=== PATIENT | female | born 1985 | race Caucasian/White ===

== ENCOUNTER 2018-11-07 17:14 | Observation (INO) | payer SELFPAY ==
[~2018-11-07] VITALS: Ht 160 cm; Wt 58.6 kg
--- NOTE | 2018-11-07 17:36 | NUR ---
AMBULATED SLOWLY WITH STEADY GAIT TO RM 12, MOTHER WITH
[2018-11-07 19:11] LABS: HEMATOCRIT 39.2 % (37.0-47.0); HEMOGLOBIN 12.8 g/dl (12.0-16.0); IMMATURE GRANULOCYTES 0.2 % (0.0-5.0); MEAN CELL VOLUME 91.6 fL CALC (80.0-100.0); MEAN CORPUSCULAR HGB 29.9 pG CALC (26.0-32.0); MEAN CORPUSCULAR HGB CONC 32.7 g/L CALC (32.0-36.0); NEUT# 3.47 thou/uL (2.00-7.15); RED BLOOD COUNT 4.28 mill/uL (4.20-5.60); RED CELL DISTRI WIDTH 12.3 % (11.5-15.5)
[2018-11-07 19:38] LABS: ALBUMIN 4.3 g/dL (3.2-5.0); ALKALINE PHOSPHATASE 46 u/l (38-126); AMYLASE 37 u/l (30-110); ANION GAP 12 (6-22 (CALC)); BILIRUBIN, TOTAL 0.8 mg/dL (0.0-1.4); BUN 13 mg/dL (7-17); BUN/CREATININE RATIO 19 (12-20 (CALC)); CARBON DIOXIDE 28 mmol/l (22-30); CHLORIDE 105 mmol/l (95-108); CREATININE 0.7 mg/dL (0.5-1.0); GFR > 60 ML/MIN (>=60 (CALC)); GFR FOR AFR.AMER. > 60 ML/MIN (>=60 (CALC)); LIPASE 61 u/l (23-300); SGOT/AST 15 u/l (14-36); SODIUM 140 mmol/l (137-146)
--- NOTE | 2018-11-07 19:39 | NUR ---
Admission Note Report Given to: JENNIFER BANDA Transported by: Wheelchair X Stretcher Transported with: X Nurse Transporter X Patent IV O2 Merchandise Collector
[2018-11-07 19:45] VITALS: BP 116/62
--- NOTE | 2018-11-07 20:30 | NUR ---
PATIENT ADMITTED FROM ER VIA STRETCHER WITH ER STAFF IN ATTENDANCE. PATIENT ABLE TO AMB TO THE STANDING SCALE AND THEN TO THE BR WITH STEADY GAIT. PATIENT THEN ASSISTED TO BED. URINE SPEC OBTAINED. PATIENT IS ALERT AND ORIENTEDX3. STATES THAT SHE WAS BROUGHT TO THE ER TODAY FOR ABD/RUQ PAIN. STATED THAT THE PAIN BECAME SEVERE ON SATURDAY AND SAW GREGORIA MIRAMONTES AT [facility]. HAD SOME TESTING DONE AND THEN WENT TO [facility] LAST NIGHT. MORE TESTING AND WAS DISCHARGED HOME. TODAY PAIN BECAME EVEN WORSE AND WAS BROUGHT TO THE ER BY FAMILY. STATES THAT HER PAIN WAS 5 AT THIS TIME. LAST BM WAS ON . ABD IS SOFT WITH HYPOACTIVE BS. PATIENT ALSO STATES THAT SHE HAS HAD 30LB WEIGHT LOSS SINCE JUN. POOR APPETITE AT THIS TIME. IV SITE TO RIGHT AC INTACT WITH IVF PATENT AND INFUSING AT 125CC/HR. SITE IS HEALTHY AT THIS TIME. PATIENT INSTRUCTED NPO AT THIS TIME. ORIENTED PATIENT TO ROOM AND SURROUNDINGS. INSTRUCTED ON USE OF NURSE CALL LIGHT SYSTEM, TV REMOTE AND PHONE. SAFETY PRECAUTIONS REINFORCED. CALL LIGHT IN REACH. WILL CONT TO MONITOR.
[2018-11-07 20:46] LABS: URINE BILIRUBIN - DIPSTICK NEGATIVE (NEGATIVE); URINE BLOOD DIPSTICK MODERATE (NEGATIVE); URINE COLOR YELLOW; URINE GLUCOSE - DIPSTICK NEGATIVE (NEGATIVE); URINE KETONE NEGATIVE (NEGATIVE); URINE LEUK ESTERASE NEGATIVE (NEGATIVE); URINE NITRITE - DIPSTICK NEGATIVE (Negative); URINE PH 5.5 (4.5-8.0); URINE PROTEIN - DIPSTICK NEGATIVE (NEG-TRACE); URINE SPECIFIC GRAVITY 1.015; URINE UROBILINOGEN - DIPSTICK 0.2 E.U./dL (0.2)
[2018-11-07 21:17] LABS: URINE SQUAMOUS EPITHELIAL CELL FEW EPI/hpf (0-FEW)
--- NOTE | 2018-11-07 22:24 | NUR ---
PATIENT RESTING IN BED AT THIS TIME-C/O SEVERE RUQ PAIN-MEDICATED WITH DILAUDID 1MG IVP FOR 9/10 ON PAIN SCALE. PATIENT REMAINS NPO AT THIS TIME. IVF PATENT AND INFUSING AT 125CC/HR VIA RIGHT AC SITE. SITE REMAINS HEALTHY AT THIS TIME. SAFETY PRECAUTIONS REINFORCED. CALL LIGHT IN REACH. WILL CONT TO MONITOR.
[2018-11-08] VITALS (11 sets, daily range): BP systolic 92–112; BP diastolic 47–67
--- NOTE | 2018-11-08 00:15 | NUR ---
PATIENT RESTING IN BED AT THIS TIME WITH S/O AT BEDSIDE. PATIENT REMAINS NPO ORDERED. IVF PATENT AND INFUSING AT 125CC/HR VIA RIGHT AC SITE. SITE REMAINS HEALTHY AT THIS TIME. IV TORADOL 15MG IVP GIVEN ORDERED AND ZOSYN 3.375MG IVPB HUNG ORDERED. OFFERED RECLINER BUT S/O DECLINES AT THIS TIME. CALL LIGHT IN REACH, WILL CONT TO MONITOR.
--- NOTE | 2018-11-08 04:00 | NUR ---
PATIENT RESTING IN BED-APPEARS SLEEPING WITH S/O AT BEDSIDE. REMAINS NPO. IVF PATENT AND INFUSING AT 125CC/HR. CALL LIGHT IN REACH. WILL CONT TO MONITOR.
--- NOTE | 2018-11-08 07:10 | NUR ---
REPORT RECEIVED FROM JENNIFER BANDA; PT LAYING IN BED C.O OF PAIN 03/21; WILL MEDICATE.
--- NOTE | 2018-11-08 07:30 | NUR ---
ASSESSMENT COMPLETED; C/O ABD PAIN 03/21, MEDICATED WITH DILAUDID; A/O X3; IVF NS INFUSING AT 125CC HR, SITE APPEARS HEALTHY; PT AWARE OF NPO STATUS; CALL PACHECO IN REACH; SAFETY PRECAUTION REINFORCE; WILL CONTINUE TO MONITOR.
--- NOTE | 2018-11-08 09:44 | NUR ---
DR TEJEDA CALLED STATED "WILL REMOVE PT'S GALLBLADDER TODAY @ 1:30, INFORM HS" Claritza ADAMSON AWARE.
--- NOTE | 2018-11-08 11:25 | NUR ---
PT TOOK A SHOWER WITH ASSIST OF HER BOY FRIEND. NOT SITTING UP IN BED WATCHING TV; IVF ZOSYN, INFUSHING WITHOUT DIFFICULTY; MEDICATED WITH TORDOL FOR PAIN 03/21; NO S/S OF DISTRESS NOTED; CALL PACHECO IN REACH.
--- NOTE | 2018-11-08 12:27 | NUR ---
PT OFF FLOOR VIA STRETCHER ACCOMPANIED BY BETH FROM OR IN STABLE CONDITION; FAMILY AT BEDSIDE.
[2018-11-08] MEDS ORDERED: PERCOCET 5/325M1 TAB PO (14:44)
--- NOTE | 2018-11-08 15:24 | NUR ---
PT ARRIVED VIA STRETCHER, ACCOMPANIED BY TWO OR STAFF IN STABLE CONDITION; PT TRF FROM STRETCHER TO BED WITH MINIMAL ASSISTANCE; PT SEEMS DROWSY; BUT ALERT; THREE SM INCISIONS NOTED TO ABD, SECTURES AND DAMABOND INTACT; SCD TO BILAT LEGS; IVF NS INSUSING @125CC HR; IV SITE APPEARS HEALTHY; PT ADVISE TO CALL FOR ASSISTANCE; FAMILY MEMBERS AT BEDSIDE; WILL CONTINUE TO MONITOR.
--- NOTE | 2018-11-08 16:15 | NUR ---
PT LAYING IN BED IN & OUT OF SLEEP; RESP EVEN AND UNLABORED; FAMILY MEMBER AT BEDSIDE; CALL PACHECO IN REACH. VOICE NO CONCERNS; WILL CONTINUE TO MONITOR.
--- NOTE | 2018-11-08 16:24 | NUR ---
MEDICATED WITH PERCOCET @1627 FOR PAIN 04/21; AT 1700 WILD FROM OR VISIT PT, PT REPORT NO RELIEF FROM PERCOCET, NEW ORDER RECEIVED FOR TORADOL TO BE GIVEN (NOW).
--- NOTE | 2018-11-08 17:49 | NUR ---
PT SITTING UP IN BED EATING SUPPER; ZOSYN INFUSING, IVS APPEARS HEALTHY; STATED SOME RELIEF FORM PAIN MEDS, PAIN 6/10; FAMILY AT BEDSIDE; SAFETY PRECAUTION REINFORCE. CALL PACHECO IN REACH.
--- NOTE | 2018-11-08 19:31 | NUR ---
PATIENT UP TO THE BR TO VOID. FORGOT TO USE SPEC HAT BUT STATES THAT SHE IS VOIDING WITHOUT ANY DIFFICULTY. ASSISTED BACK TO BED. PATIENT WITH IV SITE TO RIGHT AC WITH IVF NS PATENT AND INFUSING AT 125CC/HR. SITE APPEARS HEALTHY. PATIENT WITH C/O NAUSEA AND MEDICATED WITH ZOFRAN 4MG IVP. POST-OP PAIN 9/10 MEDICATED WITH DILAUDID 1MG IVP FOR PAIN. PROVIDED WITH COOL CLOTH TO FOREHEAD AND ICE CHIPS. SAFETY PRECAUTIONS REINFORCED. CALL LIGHT IN REACH. WILL CONT TO MONITOR.
--- NOTE | 2018-11-08 21:00 | NUR ---
PATIENT RESTING IN BED WITH COOL CLOTH TO FOREHEAD. STATES THAT SHE IS STILL FEELING NAUSEATED-NO VOMITTING. PATIENT HYPERVENTILATING-ENCOURAGED TO DO DEEP BREATHING EXERCISES. VS STABLE AND O2 SAT IS 100% on room air. PROVIDED PATIENT WITH COLD PACK AND STATES THAT IS WORKING BETTER. IVF PATENT AND INFUSING ORDERED. S/O REMAINS AT BEDSIDE AND COT PROVIDED. SAFETY PRECAUTIONS REINFORCED. CALL LIGHT IN REACH. WILL CONT TO MONITOR.
--- NOTE | 2018-11-09 | NUR ---
PATIENT RESTING IN BED-MEDICATED FOR PAIN WITH DILAUDID 1MG FOR PAIN AND WITH TORADOL SCHEDULED FOR PAIN. ZOSYN HUNG ORDERED VIA RIGHT AC IV SITE. STATES THAT HER NAUSEA HAS IMPROVED AT THIS TIME AND RESP ARE IMPROVED. SAFETY PRECAUTIONS REINFORCED.CALL LIGHT IN REACH. WILL CONT TO MONITOR.
[2018-11-09 00:04] VITALS: BP 104/69
--- NOTE | 2018-11-09 04:28 | NUR ---
APPEARS SLEEPING WITH S/O AT BEDSIDE. PATIENT WITH IVF PATETN AND INFUSING VIA RIGHT AC SITE AT 125CC/HR. CALL LIGHT IN REACH. WILL CONT TO MONITOR.
[2018-11-09 04:33] VITALS: BP 102/60
--- NOTE | 2018-11-09 06:58 | NUR ---
REPORT RECEIVED FROM JENNIFER BANDA; PT AWAKE IN BED; BOYFRIEND ASLEEP ON COT; PT VOICE NO CONCERNS;
[2018-11-09 09:00] VITALS: BP 104/72
--- NOTE | 2018-11-09 09:24 | NUR ---
ASSESSMENT COMPLETED; AMBULATE TO RESTROOM WITH SLOW STEADY GAIT, REFUSE HELP; A/O; C/O OF PAIN 02/18 MEDICATE WITH PERCOCET; DERMABOND INTACT TO 3 ABD ABD INCISIONS; ENCOURAGE TO WALK THE HALLS, STATED "IM OK FOR NOW" IV PATENT, NS INFUSING @ 125CC/HR; REQ LETTER FROM TO BE OFF WORK FOR A WEEK; FAMILY AT BEDSIDE
--- NOTE | 2018-11-09 10:15 | NUR ---
Discharge instructions given. Patient verbalizes understanding of same. Discharged in stable condition via Ambulatory to Home with significant other. All belongings sent with pt.
== END 2018-11-09 10:15 | disposition home or self-care (01) | DRG 419 ==
LOC: ED 17:14 → ED-I 18:35 → ED 18:52 → MS2 18:53
PROVIDERS: Emergency Medicine; ADMIT Surgery; ATTEND Surgery
PROC: 0FT44ZZ Resection of Gallbladder, Percutaneous Endoscopic Approach (ICD-10-PCS; principal; 2018-11-08)
DX: K81.0 Acute cholecystitis (principal)
CPT/HCPCS: G0378; J0131; J2710; Q9967; S0164

== ENCOUNTER 2019-11-21 | Emergency (ER) | payer MEDICAID ==
[~2019-11-21] MED LIST: PERCOCET 5/325M1 TAB PO
[2019-11-21] MEDS ORDERED: PRENATAL1 TA1 PO (22:50)
[2019-11-21 23:38] LABS: HEMATOCRIT 34.7 % (37.0-47.0); HEMOGLOBIN 11.9 g/dl (12.0-16.0); IMMATURE GRANULOCYTES 0.3 % (0.0-5.0); MEAN CELL VOLUME 88.7 fL CALC (80.0-100.0); MEAN CORPUSCULAR HGB 30.4 pG CALC (26.0-32.0); MEAN CORPUSCULAR HGB CONC 34.3 g/dL CAL (32.0-36.0); NEUT# 8.23 thou/uL (2.00-7.15); RED BLOOD COUNT 3.91 mill/uL (4.20-5.60); RED CELL DISTRI WIDTH 12.5 % (11.5-15.5)
[2019-11-21 23:39] LABS: URINE BILIRUBIN - DIPSTICK NEGATIVE (NEGATIVE); URINE BLOOD DIPSTICK NEGATIVE (NEGATIVE); URINE COLOR YELLOW; URINE GLUCOSE - DIPSTICK NEGATIVE (NEGATIVE); URINE KETONE NEGATIVE (NEGATIVE); URINE LEUK ESTERASE NEGATIVE (NEGATIVE); URINE NITRITE - DIPSTICK NEGATIVE (Negative); URINE PROTEIN - DIPSTICK NEGATIVE (NEG-TRACE); URINE SPECIFIC GRAVITY <=1.005; URINE UROBILINOGEN - DIPSTICK 0.2 E.U./dL (0.2)
[2019-11-21 23:51] LABS: ALBUMIN 4.4 g/dL (3.2-5.0); ALKALINE PHOSPHATASE 56 u/l (38-126); ANION GAP 14 (6-22 (CALC)); BILIRUBIN, TOTAL 0.5 mg/dL (0.0-1.4); BUN 13 mg/dL (7-17); BUN/CREATININE RATIO 22 (12-20 (CALC)); CARBON DIOXIDE 25 mmol/l (22-30); CHLORIDE 103 mmol/l (95-108); CREATININE 0.6 mg/dL (0.5-1.0); GFR > 60 ML/MIN (>=60 (CALC)); GFR FOR AFR.AMER. > 60 ML/MIN (>=60 (CALC)); POTASSIUM 3.6 mmol/l (3.5-5.1); SGOT/AST 19 u/l (14-36); SODIUM 138 mmol/l (137-146); TOTAL PROTEIN 7.3 g/dL (6.3-8.2)
== END 2019-11-22 00:15 | disposition home or self-care (01) ==
PROVIDERS: Family Medicine
DX: S39.011A Strain of muscle, fascia and tendon of abdomen, initial encounter (principal); X50.0XXA Overexertion from strenuous movement or load, initial encounter; Y93.19 Activity, other involving water and watercraft; Z33.1 Pregnant state, incidental

== ENCOUNTER 2020-08-09 15:00 | Emergency (ER) | payer MEDICAID ==
[~2020-08-09] VITALS: Ht 160 cm; Wt 70.0 kg
[~2020-08-09 15:00] MED LIST changes: +PRENATAL1 TA1 PO
[2020-08-09] MEDS ORDERED: TRAMADOL HYDROC50 M1 PO (16:01)
[2020-08-09] MEDS ORDERED: BACTROBAN TOP (16:01)
[2020-08-09] MEDS ORDERED: KEFLEX500 M1 PO (16:01)
[2020-08-09 16:08] VITALS: BP 124/79
== END 2020-08-09 16:08 | disposition home or self-care (01) ==
LOC: ED 15:00
DX: L03.011 Cellulitis of right finger (principal)

== ENCOUNTER 2021-05-22 08:06 | Emergency (ER) | payer MEDICAID ==
[~2021-05-22] VITALS: Ht 160 cm; Wt 60.9 kg
[~2021-05-22 08:06] MED LIST changes: +BACTROBAN TOP; +KEFLEX500 M1 PO; +TRAMADOL HYDROC50 M1 PO
[2021-05-22] MEDS ORDERED: SERTRALINE25 MG PO (08:32)
[2021-05-22] MEDS ORDERED: IBUPROFEN600 MG PO (09:06)
[2021-05-22 09:07] VITALS: BP 107/57
== END 2021-05-22 09:22 | disposition home or self-care (01) ==
LOC: ED 08:06
DX: S93.402A Sprain of unspecified ligament of left ankle, initial encounter (principal); S93.602A Unspecified sprain of left foot, initial encounter; S30.0XXA Contusion of lower back and pelvis, initial encounter; W01.0XXA Fall on same level from slipping, tripping and stumbling without subsequent striking against object, initial encounter

== ENCOUNTER 2021-08-02 11:48 | Emergency (ER) | payer OTHER, MEDICAID ==
[~2021-08-02] VITALS: Ht 160 cm; Wt 59.0 kg
[~2021-08-02 11:48] MED LIST changes: +IBUPROFEN600 MG PO; +SERTRALINE25 MG PO
[2021-08-02 14:33] VITALS: BP 116/72
[2021-08-02] MEDS ORDERED: TORADOL PO (14:48)
[2021-08-02] MEDS ORDERED: FLEXERIL5 M1 PO (14:48)
== END 2021-08-02 14:58 | disposition home or self-care (01) | DRG 90 ==
LOC: ED 11:48
DX: S06.0X0A Concussion without loss of consciousness, initial encounter (principal); S00.81XA Abrasion of other part of head, initial encounter; F41.9 Anxiety disorder, unspecified; V59.40XA Driver of pick-up truck or van injured in collision with unspecified motor vehicles in traffic accident, initial encounter; R93.0 Abnormal findings on diagnostic imaging of skull and head, not elsewhere classified

== ENCOUNTER 2021-08-05 22:00 | Observation (INO) | payer MEDICAID ==
[~2021-08-05] VITALS: Ht 160 cm; Wt 68.0 kg
[~2021-08-05 22:00] MED LIST changes: +FLEXERIL5 M1 PO; +TORADOL PO
--- NOTE | 2021-08-05 22:00 | NUR ---
PT TO ROOM 10 ACCOMPANIED BY .
[2021-08-05 22:39] LABS: HEMATOCRIT 40.2 % (37.0-47.0); HEMOGLOBIN 13.2 g/dl (12.0-16.0); IMMATURE GRANULOCYTES 0.1 % (0.0-5.0); MEAN CELL VOLUME 92.2 fL CALC (80.0-100.0); MEAN CORPUSCULAR HGB 30.3 pG CALC (26.0-32.0); MEAN CORPUSCULAR HGB CONC 32.8 g/dL CAL (32.0-36.0); NEUT# 3.81 thou/uL (2.00-7.15); RED BLOOD COUNT 4.36 mill/uL (4.20-5.60); RED CELL DISTRI WIDTH 12.4 % (11.5-15.5)
[2021-08-05 22:40] LABS: GFR > 60 ML/MIN (>=60 (CALC)); GFR FOR AFR.AMER. > 60 ML/MIN (>=60 (CALC))
[2021-08-05 22:51] LABS: ALBUMIN 4.5 g/dL (3.2-5.0); ALKALINE PHOSPHATASE 50 u/l (38-126); ANION GAP 12 (6-22 (CALC)); BUN 24 mg/dL (7-17); BUN/CREATININE RATIO 28 (12-20 (CALC)); CARBON DIOXIDE 27 mmol/l (22-30); CHLORIDE 105 mmol/l (95-108); CREATININE 0.9 mg/dL (0.5-1.0); GFR > 60 ML/MIN (>=60 (CALC)); GFR FOR AFR.AMER. > 60 ML/MIN (>=60 (CALC)); POTASSIUM 4.1 mmol/l (3.5-5.1); SGOT/AST 23 u/l (14-36); SODIUM 140 mmol/l (137-146)
[2021-08-05 22:52] LABS: BILIRUBIN, TOTAL 0.8 mg/dL (0.0-1.4)
[2021-08-05 22:53] LABS: INTERNATIONAL NORMALIZED RATIO 0.9 RATIO (0.7-1.3); PROTHROMBIN TIME 9.5 SECONDS (9.0-12.5)
[2021-08-05 23:04] LABS: MYOGLOBIN 28 ng/mL (0 - 62)
--- NOTE | 2021-08-05 23:05 | NUR ---
PT RESTING. AWAITING TEST RESULTS.
--- NOTE | 2021-08-06 00:25 | NUR ---
PT SLEEPING. NAD.
--- NOTE | 2021-08-06 01:45 | NUR ---
REPORT RECEIVED FROM ER
[2021-08-06 02:00] VITALS: BP 110/55
--- NOTE | 2021-08-06 02:00 | NUR ---
PATIENT ARRIVED TO FLOOR ACCOMPANIED BY Chel DAVALOS RN. PT ALERT AND ORIENTED X3. CLEAR LUNG SOUNDS, NORMAL HEART SOUNDS. PATIENT IS ON TELEMETRY (8630). RUNNING SR. PT HAS A #20 LAC SALINE LOCKED. NO CURRENT WEAKNESS ON LEFT SIDE OF BODY, NO COMPLAINT OF PAIN. PT PROVIDED WITH WARM BLANKETS, WATER AND FOOD PER REQUEST. ORIENTED TO CALL LIGHT SYSTEM AND ADVISED TO CALL. PLAN OF CARE REVIEWED. CALL LIGHT AND BEDSIDE TABLE WITHIN REACH.
--- NOTE | 2021-08-06 02:10 | NUR ---
PT TRANSFERRED TO M/S AFTER CALLING REPORT.
[2021-08-06 03:05] LABS: C-REACTIVE PROTEIN < 0.5 mg/dL (0-0.9); CALCULATED LDLCHOLESTEROL 103 mg/dL (62-129 (CALC)); CHOLESTEROL HDL RATIO 2.8 (<4.4 (CALC)); HDL CHOLESTEROL 64 mg/dL (>=40); MAGNESIUM 2.1 mg/dL (1.6-2.3); TOTAL CHOLESTEROL 178 mg/dl (0-199); TOTAL TRIGLYCERIDES 53 mg/dl (30-149); VLDL CHOLESTROL 11 mg/dl (1-41 (CALC))
[2021-08-06 04:00] VITALS: BP 101/55
--- NOTE | 2021-08-06 04:20 | NUR ---
PATIENT SLEEPING SOUNDLY, AWOKEN BY WRITTER, DENIES ANY CURRENT NEEDS. CALL LIGHT AND BEDSDEI TABLE WITHIN REACH.
[2021-08-06 04:47] LABS: IMMATURE GRANULOCYTES 0.2 % (0.0-5.0); MEAN CELL VOLUME 92.9 fL CALC (80.0-100.0); MEAN CORPUSCULAR HGB 30.1 pG CALC (26.0-32.0); MEAN CORPUSCULAR HGB CONC 32.4 g/dL CAL (32.0-36.0); NEUT# 3.29 thou/uL (2.00-7.15); RED BLOOD COUNT 3.66 mill/uL (4.20-5.60); RED CELL DISTRI WIDTH 12.7 % (11.5-15.5)
[2021-08-06 05:11] LABS: ANION GAP 9 (6-22 (CALC)); BUN 17 mg/dL (7-17); BUN/CREATININE RATIO 26 (12-20 (CALC)); CARBON DIOXIDE 22 mmol/l (22-30); CHLORIDE 111 mmol/l (95-108); CREATININE 0.7 mg/dL (0.5-1.0); GFR > 60 ML/MIN (>=60 (CALC)); GFR FOR AFR.AMER. > 60 ML/MIN (>=60 (CALC)); POTASSIUM 4.1 mmol/l (3.5-5.1); SODIUM 138 mmol/l (137-146)
[2021-08-06 06:15] LABS: PROTHROMBIN TIME 10.4 SECONDS (9.0-12.5)
[2021-08-06 07:03] LABS: URINE BILIRUBIN - DIPSTICK NEGATIVE (NEGATIVE); URINE BLOOD DIPSTICK TRACE-INTACT (NEGATIVE); URINE COLOR YELLOW; URINE GLUCOSE - DIPSTICK NEGATIVE (NEGATIVE); URINE KETONE NEGATIVE (NEGATIVE); URINE LEUK ESTERASE NEGATIVE (NEGATIVE); URINE PROTEIN - DIPSTICK NEGATIVE (NEG-TRACE); URINE UROBILINOGEN - DIPSTICK 0.2 E.U./dL (0.2)
[2021-08-06 07:05] LABS: URINE NITRITE - DIPSTICK NEGATIVE (Negative)
--- NOTE | 2021-08-06 08:00 | NUR ---
PT AWAKE UPON ENTERING ROOM. PT SHOWED LEFT ARM SWELLING THIS MORNING. DR. COLEMAN NOTIFIED. ASSESSMENT ALLOWED AT THIS TIME. LUNG SOUNDS CLEAR UPON AUSCULATION IN UPPER LOWER LOBES. HEART SOUNDS ARE REGULAR. BOWEL SOUNDS HEARD X4. TELE MONITOR IS IN PLACE, CONTINOUS MONITORING BY ED. IV IS ON THE LAC 20G FLUSHED WITH NO RESISTANCE AND ABLE TO GET BLOOD RETURN. FALL PRECAUTIONS ARE IN PLACE. CALL LIGHT AND PERSONAL ITEMS ARE WITHIN REACH.
--- NOTE | 2021-08-06 09:57 | NUR ---
DR. COLEMAN AT BEDSIDE DISCUSSING POC
[2021-08-06 10:30] VITALS: BP 121/72
--- NOTE | 2021-08-06 12:00 | NUR ---
PT IN ROOM ON PHONE UPON ENTERING ROOM. STATES NO PAIN AT THIS TIME. TELE MONITOR IN PLACE. BEING MONITORED BY ED. FALL PRECAUTIONS ARE IN PLACE. IV 20G LAC PATENT. STATES NO OTHER NEEDS AT THIS TIME. CALL LIGHT WITHIN REACH,
--- NOTE | 2021-08-06 14:04 | NUR ---
NH SCALE PERFORMED AT THIS TIME WITH JENNIFER SAL. AT 1345 PT COMPLIANED OF HEADACHE. NOTFIED DR. COLEMAN. @1400 PT STATES FEELING TINGLING DOWN HER LEFT ARM. CAUSTIC LOADER JENNIFER BERMAN NOTIFIED. VITALS WERE PERFORMED BP: 121/74, HR: 101, SPO2: 100.
--- NOTE | 2021-08-06 14:13 | NUR ---
DR. COLEMAN NOTIFIED AT THIS TIME OF PT STATUS. SHE CONTINUE TO HAVE TINGLING ON HER LEFT SIDE. CAN NOT MOVE HER LEFT ARM OR LEG. SHE REMAINS ALERT TO PERSON AND PLACE.
--- NOTE | 2021-08-06 14:16 | NUR ---
RAPID RESPONSE WAS CALLED AT THIS TIME. NIH SCALE RESULTS WERE 9. PT IS VERY WEAK TO FIRM ADMINISTRATOR, CAN NOT MOVE LEFT LEG. OR MOVE LEFT ARM AT ALL. CAN SHOW HER TEETH AND STICK OUT PARTIALLY THE TONNGUE.
--- NOTE | 2021-08-06 14:26 | NUR ---
PT TAKEN DOWN TO CT OF THE BRAIN VIA BED WITH JENNIFER BERMAN, JENNIFER DAHL (AUCTION BLOCK CLERK) AND JENNIFER GLEASON. WITH CONTINUED LEFT SIDED WEAKNESS.
--- NOTE | 2021-08-06 14:33 | NUR ---
PT BACK IN ROOM FROM CT, AWAITING RESULTS.RN ANTONI, JENNIFER GLEASON AND JENNIFER DAHL (OPTICAL ENGINEER) AT BEDSIDE. PT BECOMING MORE LETHARGIC. CAN NOT LIFT UP BOTH LEGS. CAN SLIGHTLY PATTERN CHAIN MAKER SUPERVISOR RIGHT ARM BUT NOT LEFT ARM. PT UNABLE TO SMILE AND STICK OUT HER TONGUE. PT CAN STILL SAY NAME//LOCATION. SPEECH REMAINS SLURRED.
--- NOTE | 2021-08-06 14:37 | NUR ---
PT BLOOD SUGAR CHECKED: 90
--- NOTE | 2021-08-06 14:40 | NUR ---
DR. LORETA NAJERALOGIST CONSULTED VIA COMPUTER WEBCAM AT THIS TIME DISCUSSING POC WITH PT. JENNIFER BERMAN, JENNIFER GLEASON AND JENNIFER DAHL (YIELD CLERK) PRESENT AT BEDSIDE.
--- NOTE | 2021-08-06 14:45 | NUR ---
DR. KAN PLAN IS TO TRANSER PT TO [facility] VIA HELLIC[facility]TER WITH [facility]. DR. KAN STATES POSSIBLE LARGE VESSEL OCCLUSION. PT STILL VERY WEAK WITH CONTINUING TINGLING DOWN HER LEFT SIDE. CAN STILL SAY HER NAME,, AND LOCATION. UNABLE TO MOVE LEFT SIDE OF BODY. JENNIFER DAHL (DICTAPHONE TECHNICIAN), JENNIFER GLEASON, DR KAN (VIA WEBCAM) AT BEDSIDE WITH PT
[2021-08-06 15:29] LABS: HEMOGLOBIN 13.9 g/dl (12.0-16.0); IMMATURE GRANULOCYTES 0.2 % (0.0-5.0); MEAN CELL VOLUME 91.2 fL CALC (80.0-100.0); MEAN CORPUSCULAR HGB 30.5 pG CALC (26.0-32.0); MEAN CORPUSCULAR HGB CONC 33.4 g/dL CAL (32.0-36.0); NEUT# 3.35 thou/uL (2.00-7.15); RED BLOOD COUNT 4.56 mill/uL (4.20-5.60); RED CELL DISTRI WIDTH 12.5 % (11.5-15.5)
[2021-08-06 15:30] LABS: HEMATOCRIT 41.6 % (37.0-47.0)
--- NOTE | 2021-08-06 15:31 | NUR ---
PERFORMED NIH SCALE AGAIN WITH A SCORE OF BEING 14. PT VERY WEAK, CRYING, UNABLE TO MOVE LEFT SIDE OF BODY. JENNIFER DAHL(VARNISH FINISHER) AND DR. KAN (VIA WEBCAM) AT BEDSIDE.
[2021-08-06 15:40] LABS: ALBUMIN 4.2 g/dL (3.2-5.0); ALKALINE PHOSPHATASE 47 u/l (38-126); ANION GAP 10 (6-22 (CALC)); BUN 10 mg/dL (7-17); BUN/CREATININE RATIO 15 (12-20 (CALC)); CARBON DIOXIDE 26 mmol/l (22-30); CHLORIDE 108 mmol/l (95-108); CREATININE 0.6 mg/dL (0.5-1.0); GFR > 60 ML/MIN (>=60 (CALC)); GFR FOR AFR.AMER. > 60 ML/MIN (>=60 (CALC)); SGOT/AST 21 u/l (14-36); SODIUM 140 mmol/l (137-146); TOTAL PROTEIN 7.6 g/dL (6.3-8.2)
[2021-08-06 15:46] LABS: ACT PARTIAL THROMBO TIME 22.3 SECONDS (20.0-32.5); INTERNATIONAL NORMALIZED RATIO 0.9 RATIO (0.7-1.3); PROTHROMBIN TIME 9.8 SECONDS (9.0-12.5)
--- NOTE | 2021-08-06 16:06 | NUR ---
GAVE REPORT AT THIS TIME WITH JENNIFER RYAN FROM [facility].
--- NOTE | 2021-08-06 16:24 | NUR ---
PT LEFT VIA STRETCHER WITH [facility] STAFF FROM [facility]. PT COMPLAINED OF HEADACHE AND UNABLE TO MOVE LEFT SIDE AND TINGLING.
== END 2021-08-06 16:25 | disposition short-term general hospital (02) ==
LOC: ED 22:00 → ED-I 23:07 → ED 08-06 00:50 → MS2 08-06 00:50
PROVIDERS: Emergency Medicine; ADMIT Hospitalist; ATTEND Hospitalist
DX: I61.0 Nontraumatic intracerebral hemorrhage in hemisphere, subcortical (principal); G81.94 Hemiplegia, unspecified affecting left nondominant side; R20.0 Anesthesia of skin; R20.2 Paresthesia of skin; R47.81 Slurred speech; R29.709 NIHSS score 9; F41.9 Anxiety disorder, unspecified; Z20.822 Contact with and (suspected) exposure to COVID-19
CPT/HCPCS: G0378; Q9967

== ENCOUNTER 2021-09-25 10:52 | Emergency (ER) | payer MEDICAID ==
[~2021-09-25] VITALS: Ht 160 cm; Wt 62.0 kg
[2021-09-25 12:00] LABS: URINE BILIRUBIN - DIPSTICK NEGATIVE (NEGATIVE); URINE BLOOD DIPSTICK TRACE-INTACT (NEGATIVE); URINE COLOR YELLOW; URINE GLUCOSE - DIPSTICK NEGATIVE (NEGATIVE); URINE KETONE NEGATIVE (NEGATIVE); URINE LEUK ESTERASE NEGATIVE (NEGATIVE); URINE PH 6.5 (4.5-8.0); URINE PROTEIN - DIPSTICK NEGATIVE (NEG-TRACE); URINE UROBILINOGEN - DIPSTICK 0.2 E.U./dL (0.2)
[2021-09-25 12:06] LABS: HEMATOCRIT 41.5 % (37.0-47.0); IMMATURE GRANULOCYTES 0.2 % (0.0-5.0); MEAN CELL VOLUME 95.4 fL CALC (80.0-100.0); MEAN CORPUSCULAR HGB 29.9 pG CALC (26.0-32.0); MEAN CORPUSCULAR HGB CONC 31.3 g/dL CAL (32.0-36.0); NEUT# 2.78 thou/uL (2.00-7.15); RED BLOOD COUNT 4.35 mill/uL (4.20-5.60); RED CELL DISTRI WIDTH 12.8 % (11.5-15.5)
[2021-09-25 12:12] LABS: URINE NITRITE - DIPSTICK NEGATIVE (Negative)
[2021-09-25 12:16] LABS: ALBUMIN 4.2 g/dL (3.2-5.0); ALKALINE PHOSPHATASE 40 u/l (38-126); ANION GAP 15 (6-22 (CALC)); BUN 8 mg/dL (7-17); BUN/CREATININE RATIO 13 (12-20 (CALC)); CARBON DIOXIDE 25 mmol/l (22-30); CHLORIDE 105 mmol/l (95-108); CREATININE 0.6 mg/dL (0.5-1.0); GFR > 60 ML/MIN (>=60 (CALC)); GFR FOR AFR.AMER. > 60 ML/MIN (>=60 (CALC)); LIPASE 68 u/l (23-300); SGOT/AST 24 u/l (14-36); SODIUM 140 mmol/l (137-146); TOTAL PROTEIN 7.3 g/dL (6.3-8.2)
[2021-09-25 12:24] LABS: BILIRUBIN, TOTAL 0.5 mg/dL (0.0-1.4)
[2021-09-25] MEDS ORDERED: TORADOL PO (14:02)
[2021-09-25 14:47] VITALS: BP 113/78
== END 2021-09-25 14:50 | disposition home or self-care (01) ==
LOC: ED 10:52
PROVIDERS: Emergency Medicine
DX: K59.00 Constipation, unspecified (principal); F41.9 Anxiety disorder, unspecified; Z97.5 Presence of (intrauterine) contraceptive device; Z20.822 Contact with and (suspected) exposure to COVID-19
CPT/HCPCS: Q9967

== ENCOUNTER 2023-02-09 13:21 | Emergency (ER) | payer MEDICAID ==
[~2023-02-09] VITALS: Ht 160 cm; Wt 64.8 kg
[2023-02-09 15:35] VITALS: BP 116/74
== END 2023-02-09 15:42 | disposition home or self-care (01) ==
LOC: ED 13:21
DX: M79.605 Pain in left leg (principal); Z86.73 Personal history of transient ischemic attack (TIA), and cerebral infarction without residual deficits